=== PATIENT | male | born 1975 | race Two or more races ===

== ENCOUNTER → 2019-11-27 | Outpatient (CLI) | payer MEDICAID | END | disposition home or self-care (01) | LOC: HBOWC 09:26 | PROVIDERS: ATTEND Nurse Practitioner Adult Health | DX: E11.622 Type 2 diabetes mellitus with other skin ulcer (principal); L97.311 Non-pressure chronic ulcer of right ankle limited to breakdown of skin; I10 Essential (primary) hypertension; M00.871 Arthritis due to other bacteria, right ankle and foot | CPT/HCPCS: 87070; 87077; 87186; 87205; 97605; G0463 ==

== ENCOUNTER → 2019-12-10 | Outpatient (CLI) | payer MEDICAID | END | disposition home or self-care (01) | LOC: RADPV 09:05 | PROVIDERS: ATTEND Nurse Practitioner Adult Health | DX: E11.622 Type 2 diabetes mellitus with other skin ulcer (principal); L97.819 Non-pressure chronic ulcer of other part of right lower leg with unspecified severity; L02.415 Cutaneous abscess of right lower limb | CPT/HCPCS: 93926; 93971; 93922-TC ==

== ENCOUNTER → 2019-12-17 | Outpatient (CLI) | payer MEDICAID ==
[~2019-12-17] MED LIST: GADOBUTROL 1 MMOL/ML 10 ML VIAL IVP ONE
== END | disposition home or self-care (01) ==
LOC: RADMN 09:37
PROVIDERS: ATTEND Nurse Practitioner Adult Health
DX: M25.461 Effusion, right knee (principal); M86.161 Other acute osteomyelitis, right tibia and fibula; E11.622 Type 2 diabetes mellitus with other skin ulcer; L97.819 Non-pressure chronic ulcer of other part of right lower leg with unspecified severity; L02.415 Cutaneous abscess of right lower limb
CPT/HCPCS: 73720; A9585

== ENCOUNTER → 2019-12-18 | Outpatient (CLI) | payer MEDICAID | END | disposition home or self-care (01) | LOC: HBOWC 08:46 | PROVIDERS: ATTEND Nurse Practitioner Adult Health | DX: E11.622 Type 2 diabetes mellitus with other skin ulcer (principal); L97.311 Non-pressure chronic ulcer of right ankle limited to breakdown of skin; L97.811 Non-pressure chronic ulcer of other part of right lower leg limited to breakdown of skin; I10 Essential (primary) hypertension; M00.871 Arthritis due to other bacteria, right ankle and foot; E11.69 Type 2 diabetes mellitus with other specified complication; M86.161 Other acute osteomyelitis, right tibia and fibula | CPT/HCPCS: 97605 ==

== ENCOUNTER → 2019-12-25 | Outpatient (CLI) | payer MEDICAID | END | disposition home or self-care (01) | LOC: HBOWC 09:08 | PROVIDERS: ATTEND Nurse Practitioner Adult Health | DX: E11.622 Type 2 diabetes mellitus with other skin ulcer (principal); L97.311 Non-pressure chronic ulcer of right ankle limited to breakdown of skin; L97.811 Non-pressure chronic ulcer of other part of right lower leg limited to breakdown of skin; L02.415 Cutaneous abscess of right lower limb; I10 Essential (primary) hypertension; M00.871 Arthritis due to other bacteria, right ankle and foot; E11.69 Type 2 diabetes mellitus with other specified complication; M86.161 Other acute osteomyelitis, right tibia and fibula | CPT/HCPCS: 97605 ==

== ENCOUNTER → 2020-01-01 | Outpatient (CLI) | payer MEDICAID | END | disposition home or self-care (01) | LOC: HBOWC 09:15 | PROVIDERS: ATTEND Nurse Practitioner Adult Health | DX: E11.622 Type 2 diabetes mellitus with other skin ulcer (principal); L97.311 Non-pressure chronic ulcer of right ankle limited to breakdown of skin; L97.811 Non-pressure chronic ulcer of other part of right lower leg limited to breakdown of skin; L02.415 Cutaneous abscess of right lower limb; I10 Essential (primary) hypertension; M00.871 Arthritis due to other bacteria, right ankle and foot; E11.69 Type 2 diabetes mellitus with other specified complication; M86.161 Other acute osteomyelitis, right tibia and fibula | CPT/HCPCS: 97605 ==

== ENCOUNTER → 2020-01-08 | Outpatient (CLI) | payer MEDICAID | END | disposition home or self-care (01) | LOC: HBOWC 09:49 | PROVIDERS: ATTEND Nurse Practitioner Adult Health | DX: E11.622 Type 2 diabetes mellitus with other skin ulcer (principal); L97.311 Non-pressure chronic ulcer of right ankle limited to breakdown of skin; L97.811 Non-pressure chronic ulcer of other part of right lower leg limited to breakdown of skin; L02.415 Cutaneous abscess of right lower limb; I10 Essential (primary) hypertension; M00.871 Arthritis due to other bacteria, right ankle and foot; E11.69 Type 2 diabetes mellitus with other specified complication; M86.161 Other acute osteomyelitis, right tibia and fibula | CPT/HCPCS: 97605 ==

== ENCOUNTER → 2020-01-15 | Outpatient (CLI) | payer MEDICAID | END | disposition home or self-care (01) | LOC: HBOWC 09:33 | PROVIDERS: ATTEND Nurse Practitioner Adult Health | DX: E11.622 Type 2 diabetes mellitus with other skin ulcer (principal); L97.311 Non-pressure chronic ulcer of right ankle limited to breakdown of skin; L97.811 Non-pressure chronic ulcer of other part of right lower leg limited to breakdown of skin; L02.415 Cutaneous abscess of right lower limb; I10 Essential (primary) hypertension; M00.871 Arthritis due to other bacteria, right ankle and foot; E11.69 Type 2 diabetes mellitus with other specified complication; M86.161 Other acute osteomyelitis, right tibia and fibula | CPT/HCPCS: 97605 ==

== ENCOUNTER → 2020-01-22 | Outpatient (CLI) | payer MEDICAID | END | disposition home or self-care (01) | LOC: HBOWC 09:27 | PROVIDERS: ATTEND Nurse Practitioner Adult Health | DX: E11.622 Type 2 diabetes mellitus with other skin ulcer (principal); L97.311 Non-pressure chronic ulcer of right ankle limited to breakdown of skin; L97.811 Non-pressure chronic ulcer of other part of right lower leg limited to breakdown of skin; L02.415 Cutaneous abscess of right lower limb; I10 Essential (primary) hypertension; M00.871 Arthritis due to other bacteria, right ankle and foot; E11.69 Type 2 diabetes mellitus with other specified complication; M86.161 Other acute osteomyelitis, right tibia and fibula | CPT/HCPCS: 17250; 97605 ==

== ENCOUNTER → 2020-02-05 | Outpatient (CLI) | payer MEDICAID | END | disposition home or self-care (01) | LOC: HBOWC 09:25 | PROVIDERS: ATTEND Nurse Practitioner Adult Health | DX: E11.622 Type 2 diabetes mellitus with other skin ulcer (principal); L97.311 Non-pressure chronic ulcer of right ankle limited to breakdown of skin; L97.811 Non-pressure chronic ulcer of other part of right lower leg limited to breakdown of skin; L02.415 Cutaneous abscess of right lower limb; I10 Essential (primary) hypertension; M00.871 Arthritis due to other bacteria, right ankle and foot; E11.69 Type 2 diabetes mellitus with other specified complication; M86.161 Other acute osteomyelitis, right tibia and fibula | CPT/HCPCS: 97605 ==

== ENCOUNTER → 2020-02-12 | Outpatient (CLI) | payer MEDICAID | END | disposition home or self-care (01) | LOC: HBOWC 09:32 | PROVIDERS: ATTEND Nurse Practitioner Adult Health | DX: E11.622 Type 2 diabetes mellitus with other skin ulcer (principal); L97.311 Non-pressure chronic ulcer of right ankle limited to breakdown of skin; L97.811 Non-pressure chronic ulcer of other part of right lower leg limited to breakdown of skin; L02.415 Cutaneous abscess of right lower limb; I10 Essential (primary) hypertension; M00.871 Arthritis due to other bacteria, right ankle and foot; E11.69 Type 2 diabetes mellitus with other specified complication; M86.161 Other acute osteomyelitis, right tibia and fibula ==

== ENCOUNTER → 2020-02-19 | Outpatient (CLI) | payer MEDICAID | END | disposition home or self-care (01) | LOC: HBOWC 10:24 | PROVIDERS: ATTEND Nurse Practitioner Adult Health | DX: E11.622 Type 2 diabetes mellitus with other skin ulcer (principal); L97.311 Non-pressure chronic ulcer of right ankle limited to breakdown of skin; L97.811 Non-pressure chronic ulcer of other part of right lower leg limited to breakdown of skin; L02.415 Cutaneous abscess of right lower limb; I10 Essential (primary) hypertension; M00.871 Arthritis due to other bacteria, right ankle and foot; E11.69 Type 2 diabetes mellitus with other specified complication; M86.161 Other acute osteomyelitis, right tibia and fibula | CPT/HCPCS: 17250 ==

== ENCOUNTER → 2020-02-26 | Outpatient (CLI) | payer MEDICAID | END | disposition home or self-care (01) | LOC: HBOWC 09:39 | PROVIDERS: ATTEND Nurse Practitioner Adult Health | DX: E11.622 Type 2 diabetes mellitus with other skin ulcer (principal); L97.311 Non-pressure chronic ulcer of right ankle limited to breakdown of skin; L97.811 Non-pressure chronic ulcer of other part of right lower leg limited to breakdown of skin; L02.415 Cutaneous abscess of right lower limb; I10 Essential (primary) hypertension; M00.871 Arthritis due to other bacteria, right ankle and foot; E11.69 Type 2 diabetes mellitus with other specified complication; M86.161 Other acute osteomyelitis, right tibia and fibula | CPT/HCPCS: 97597 ==

== ENCOUNTER → 2020-03-04 | Outpatient (CLI) | payer MEDICAID | END | disposition home or self-care (01) | LOC: HBOWC 09:30 | PROVIDERS: ATTEND Nurse Practitioner Adult Health | DX: E11.622 Type 2 diabetes mellitus with other skin ulcer (principal); L97.311 Non-pressure chronic ulcer of right ankle limited to breakdown of skin; L97.811 Non-pressure chronic ulcer of other part of right lower leg limited to breakdown of skin; L02.415 Cutaneous abscess of right lower limb; I10 Essential (primary) hypertension; M00.871 Arthritis due to other bacteria, right ankle and foot; E11.69 Type 2 diabetes mellitus with other specified complication; M86.161 Other acute osteomyelitis, right tibia and fibula | CPT/HCPCS: 17250 ==

== ENCOUNTER → 2020-03-11 | Outpatient (CLI) | payer MEDICAID | END | disposition home or self-care (01) | LOC: HBOWC 09:33 | PROVIDERS: ATTEND Nurse Practitioner Adult Health | DX: E11.622 Type 2 diabetes mellitus with other skin ulcer (principal); L97.311 Non-pressure chronic ulcer of right ankle limited to breakdown of skin; L97.811 Non-pressure chronic ulcer of other part of right lower leg limited to breakdown of skin; L02.415 Cutaneous abscess of right lower limb; I10 Essential (primary) hypertension; M00.871 Arthritis due to other bacteria, right ankle and foot; E11.69 Type 2 diabetes mellitus with other specified complication; M86.161 Other acute osteomyelitis, right tibia and fibula | CPT/HCPCS: G0463; Z7500 ==

== ENCOUNTER → 2020-03-18 | Outpatient (CLI) | payer MEDICAID | END | disposition home or self-care (01) | LOC: HBOWC 09:15 | PROVIDERS: ATTEND Nurse Practitioner Adult Health | DX: E11.622 Type 2 diabetes mellitus with other skin ulcer (principal); L97.311 Non-pressure chronic ulcer of right ankle limited to breakdown of skin; L97.811 Non-pressure chronic ulcer of other part of right lower leg limited to breakdown of skin; L02.415 Cutaneous abscess of right lower limb; I10 Essential (primary) hypertension; M00.871 Arthritis due to other bacteria, right ankle and foot; E11.69 Type 2 diabetes mellitus with other specified complication; M86.161 Other acute osteomyelitis, right tibia and fibula ==

== ENCOUNTER → 2020-03-25 | Outpatient (CLI) | payer MEDICAID | END | disposition home or self-care (01) | LOC: HBOWC 09:16 | PROVIDERS: ATTEND Nurse Practitioner Adult Health | DX: E11.622 Type 2 diabetes mellitus with other skin ulcer (principal); L97.311 Non-pressure chronic ulcer of right ankle limited to breakdown of skin; L97.811 Non-pressure chronic ulcer of other part of right lower leg limited to breakdown of skin; L02.415 Cutaneous abscess of right lower limb; I10 Essential (primary) hypertension; M00.871 Arthritis due to other bacteria, right ankle and foot; E11.69 Type 2 diabetes mellitus with other specified complication; M86.161 Other acute osteomyelitis, right tibia and fibula | CPT/HCPCS: 17250; 87070; 87205; 87077-TC ==

== ENCOUNTER → 2020-04-08 | Outpatient (CLI) | payer MEDICAID | END | disposition home or self-care (01) | LOC: HBOWC 09:35 | PROVIDERS: ATTEND Nurse Practitioner Adult Health | DX: E11.622 Type 2 diabetes mellitus with other skin ulcer (principal); L97.311 Non-pressure chronic ulcer of right ankle limited to breakdown of skin; L97.811 Non-pressure chronic ulcer of other part of right lower leg limited to breakdown of skin; L02.415 Cutaneous abscess of right lower limb; I10 Essential (primary) hypertension; M00.871 Arthritis due to other bacteria, right ankle and foot; E11.69 Type 2 diabetes mellitus with other specified complication; M86.161 Other acute osteomyelitis, right tibia and fibula; L84 Corns and callosities | CPT/HCPCS: G0463; Z7500 ==

== ENCOUNTER → 2020-04-15 | Outpatient (CLI) | payer MEDICAID | END | disposition home or self-care (01) | LOC: HBOWC 09:39 | PROVIDERS: ATTEND Nurse Practitioner Adult Health | DX: E11.622 Type 2 diabetes mellitus with other skin ulcer (principal); L97.311 Non-pressure chronic ulcer of right ankle limited to breakdown of skin; L97.811 Non-pressure chronic ulcer of other part of right lower leg limited to breakdown of skin; L02.415 Cutaneous abscess of right lower limb; I10 Essential (primary) hypertension; M00.871 Arthritis due to other bacteria, right ankle and foot; E11.69 Type 2 diabetes mellitus with other specified complication; M86.161 Other acute osteomyelitis, right tibia and fibula; L84 Corns and callosities | CPT/HCPCS: G0463; Z7500 ==

== ENCOUNTER → 2020-04-29 | Outpatient (CLI) | payer MEDICAID ==
[~2020-04-29] MED LIST changes: -GADOBUTROL 1 MMOL/ML 10 ML VIAL IVP ONE; +GENTAMICIN SULFATE 0.1% 15 GM OINTMENT TP ONE
== END | disposition home or self-care (01) ==
LOC: HBOWC 09:21
PROVIDERS: ATTEND Nurse Practitioner Adult Health
DX: E11.622 Type 2 diabetes mellitus with other skin ulcer (principal); L97.311 Non-pressure chronic ulcer of right ankle limited to breakdown of skin; L97.811 Non-pressure chronic ulcer of other part of right lower leg limited to breakdown of skin; L02.415 Cutaneous abscess of right lower limb; I10 Essential (primary) hypertension; M00.871 Arthritis due to other bacteria, right ankle and foot; E11.69 Type 2 diabetes mellitus with other specified complication; M86.161 Other acute osteomyelitis, right tibia and fibula; L84 Corns and callosities

== ENCOUNTER → 2020-05-06 | Outpatient (CLI) | payer MEDICAID ==
[~2020-05-06] MED LIST changes: +ACETIC ACID 0.25% 1000 ML IRRIGATION SOLUTION IRRIG ONE; -GENTAMICIN SULFATE 0.1% 15 GM OINTMENT TP ONE
== END | disposition home or self-care (01) ==
LOC: HBOWC 08:45
PROVIDERS: ATTEND Nurse Practitioner Adult Health
DX: E11.622 Type 2 diabetes mellitus with other skin ulcer (principal); L97.311 Non-pressure chronic ulcer of right ankle limited to breakdown of skin; L97.811 Non-pressure chronic ulcer of other part of right lower leg limited to breakdown of skin; L02.415 Cutaneous abscess of right lower limb; M00.871 Arthritis due to other bacteria, right ankle and foot; I10 Essential (primary) hypertension; Z79.84 Long term (current) use of oral hypoglycemic drugs

== ENCOUNTER → 2020-05-13 | Outpatient (CLI) | payer MEDICAID | END | disposition home or self-care (01) | LOC: HBOWC 09:49 | PROVIDERS: ATTEND Nurse Practitioner Adult Health | DX: E11.622 Type 2 diabetes mellitus with other skin ulcer (principal); I87.311 Chronic venous hypertension (idiopathic) with ulcer of right lower extremity; L97.812 Non-pressure chronic ulcer of other part of right lower leg with fat layer exposed; L97.312 Non-pressure chronic ulcer of right ankle with fat layer exposed; L02.415 Cutaneous abscess of right lower limb; M00.871 Arthritis due to other bacteria, right ankle and foot; I10 Essential (primary) hypertension; L84 Corns and callosities; E11.69 Type 2 diabetes mellitus with other specified complication; M86.161 Other acute osteomyelitis, right tibia and fibula; Z79.84 Long term (current) use of oral hypoglycemic drugs | CPT/HCPCS: 11042 ==

== ENCOUNTER → 2020-05-19 | Outpatient (CLI) | payer MEDICAID | END | disposition home or self-care (01) | LOC: HBOWC 09:29 | PROVIDERS: ATTEND Nurse Practitioner Adult Health | DX: E11.622 Type 2 diabetes mellitus with other skin ulcer (principal); I87.311 Chronic venous hypertension (idiopathic) with ulcer of right lower extremity; L97.812 Non-pressure chronic ulcer of other part of right lower leg with fat layer exposed; L97.312 Non-pressure chronic ulcer of right ankle with fat layer exposed; L02.415 Cutaneous abscess of right lower limb; M00.871 Arthritis due to other bacteria, right ankle and foot; I10 Essential (primary) hypertension; L84 Corns and callosities; E11.69 Type 2 diabetes mellitus with other specified complication; M86.161 Other acute osteomyelitis, right tibia and fibula; Z79.84 Long term (current) use of oral hypoglycemic drugs | CPT/HCPCS: G0463; Z7500 ==

== ENCOUNTER → 2020-06-03 | Outpatient (CLI) | payer MEDICAID | END | disposition home or self-care (01) | LOC: HBOWC 10:08 | PROVIDERS: ATTEND Nurse Practitioner Adult Health | DX: E11.622 Type 2 diabetes mellitus with other skin ulcer (principal); I87.311 Chronic venous hypertension (idiopathic) with ulcer of right lower extremity; L97.311 Non-pressure chronic ulcer of right ankle limited to breakdown of skin; L97.811 Non-pressure chronic ulcer of other part of right lower leg limited to breakdown of skin; L02.415 Cutaneous abscess of right lower limb; M00.871 Arthritis due to other bacteria, right ankle and foot; L84 Corns and callosities; E11.69 Type 2 diabetes mellitus with other specified complication; M86.161 Other acute osteomyelitis, right tibia and fibula; Z79.84 Long term (current) use of oral hypoglycemic drugs | CPT/HCPCS: 17250 ==

== ENCOUNTER → 2020-06-10 | Outpatient (CLI) | payer MEDICAID | END | disposition home or self-care (01) | LOC: HBOWC 09:51 | PROVIDERS: ATTEND Nurse Practitioner Adult Health | DX: E11.622 Type 2 diabetes mellitus with other skin ulcer (principal); I87.311 Chronic venous hypertension (idiopathic) with ulcer of right lower extremity; L97.311 Non-pressure chronic ulcer of right ankle limited to breakdown of skin; L97.811 Non-pressure chronic ulcer of other part of right lower leg limited to breakdown of skin; L02.415 Cutaneous abscess of right lower limb; M00.871 Arthritis due to other bacteria, right ankle and foot; L84 Corns and callosities; E11.69 Type 2 diabetes mellitus with other specified complication; M86.161 Other acute osteomyelitis, right tibia and fibula; Z79.84 Long term (current) use of oral hypoglycemic drugs | CPT/HCPCS: 17250 ==

== ENCOUNTER → 2020-06-17 | Outpatient (CLI) | payer MEDICAID | END | disposition home or self-care (01) | LOC: HBOWC 09:42 | PROVIDERS: ATTEND Nurse Practitioner Adult Health | DX: E11.622 Type 2 diabetes mellitus with other skin ulcer (principal); I87.311 Chronic venous hypertension (idiopathic) with ulcer of right lower extremity; L97.311 Non-pressure chronic ulcer of right ankle limited to breakdown of skin; L97.811 Non-pressure chronic ulcer of other part of right lower leg limited to breakdown of skin; L02.415 Cutaneous abscess of right lower limb; M00.871 Arthritis due to other bacteria, right ankle and foot; L84 Corns and callosities; E11.69 Type 2 diabetes mellitus with other specified complication; M86.161 Other acute osteomyelitis, right tibia and fibula; Z79.84 Long term (current) use of oral hypoglycemic drugs | CPT/HCPCS: G0463; Z7500 ==

== ENCOUNTER → 2020-06-24 | Outpatient (CLI) | payer MEDICAID | END | disposition home or self-care (01) | LOC: HBOWC 09:45 | PROVIDERS: ATTEND Nurse Practitioner Adult Health | DX: T81.89XD Other complications of procedures, not elsewhere classified, subsequent encounter (principal); E11.622 Type 2 diabetes mellitus with other skin ulcer; I87.311 Chronic venous hypertension (idiopathic) with ulcer of right lower extremity; L97.311 Non-pressure chronic ulcer of right ankle limited to breakdown of skin; L97.811 Non-pressure chronic ulcer of other part of right lower leg limited to breakdown of skin; L02.415 Cutaneous abscess of right lower limb; I10 Essential (primary) hypertension; M00.871 Arthritis due to other bacteria, right ankle and foot; Z79.84 Long term (current) use of oral hypoglycemic drugs; Y83.8 Other surgical procedures as the cause of abnormal reaction of the patient, or of later complication, without mention of misadventure at the time of the procedure | CPT/HCPCS: G0463; Z7500 ==

== ENCOUNTER → 2020-07-01 | Outpatient (CLI) | payer MEDICAID | END | disposition home or self-care (01) | LOC: HBOWC 09:28 | PROVIDERS: ATTEND Nurse Practitioner Adult Health | DX: E11.622 Type 2 diabetes mellitus with other skin ulcer (principal); I87.311 Chronic venous hypertension (idiopathic) with ulcer of right lower extremity; L97.311 Non-pressure chronic ulcer of right ankle limited to breakdown of skin; L97.811 Non-pressure chronic ulcer of other part of right lower leg limited to breakdown of skin; L02.415 Cutaneous abscess of right lower limb; M00.871 Arthritis due to other bacteria, right ankle and foot; L84 Corns and callosities; E11.69 Type 2 diabetes mellitus with other specified complication; M86.161 Other acute osteomyelitis, right tibia and fibula; Z79.84 Long term (current) use of oral hypoglycemic drugs | CPT/HCPCS: 17250 ==

== ENCOUNTER → 2020-07-08 | Outpatient (CLI) | payer MEDICAID | END | disposition home or self-care (01) | LOC: HBOWC 09:46 | PROVIDERS: ATTEND Nurse Practitioner Adult Health | DX: E11.622 Type 2 diabetes mellitus with other skin ulcer (principal); I87.311 Chronic venous hypertension (idiopathic) with ulcer of right lower extremity; L97.311 Non-pressure chronic ulcer of right ankle limited to breakdown of skin; L97.811 Non-pressure chronic ulcer of other part of right lower leg limited to breakdown of skin; L02.415 Cutaneous abscess of right lower limb; M00.871 Arthritis due to other bacteria, right ankle and foot; L84 Corns and callosities; E11.69 Type 2 diabetes mellitus with other specified complication; M86.161 Other acute osteomyelitis, right tibia and fibula; Z79.84 Long term (current) use of oral hypoglycemic drugs | CPT/HCPCS: G0463; Z7500 ==

== ENCOUNTER → 2020-07-15 | Outpatient (CLI) | payer MEDICAID | END | disposition home or self-care (01) | LOC: HBOWC 08:49 | PROVIDERS: ATTEND Nurse Practitioner Adult Health | DX: E11.622 Type 2 diabetes mellitus with other skin ulcer (principal); I87.311 Chronic venous hypertension (idiopathic) with ulcer of right lower extremity; L97.311 Non-pressure chronic ulcer of right ankle limited to breakdown of skin; L97.811 Non-pressure chronic ulcer of other part of right lower leg limited to breakdown of skin; L02.415 Cutaneous abscess of right lower limb; M00.871 Arthritis due to other bacteria, right ankle and foot; L84 Corns and callosities; E11.69 Type 2 diabetes mellitus with other specified complication; M86.161 Other acute osteomyelitis, right tibia and fibula; Z79.84 Long term (current) use of oral hypoglycemic drugs | CPT/HCPCS: G0463; Z7500 ==

== ENCOUNTER → 2020-07-22 | Outpatient (CLI) | payer MEDICAID | END | disposition home or self-care (01) | LOC: HBOWC 09:38 | PROVIDERS: ATTEND Nurse Practitioner Adult Health | DX: E11.622 Type 2 diabetes mellitus with other skin ulcer (principal); I87.311 Chronic venous hypertension (idiopathic) with ulcer of right lower extremity; L97.311 Non-pressure chronic ulcer of right ankle limited to breakdown of skin; L97.811 Non-pressure chronic ulcer of other part of right lower leg limited to breakdown of skin; L02.415 Cutaneous abscess of right lower limb; M00.871 Arthritis due to other bacteria, right ankle and foot; L84 Corns and callosities; E11.69 Type 2 diabetes mellitus with other specified complication; M86.161 Other acute osteomyelitis, right tibia and fibula; Z79.84 Long term (current) use of oral hypoglycemic drugs | CPT/HCPCS: G0463; Z7500 ==

== ENCOUNTER → 2020-07-29 | Outpatient (CLI) | payer MEDICAID | END | disposition home or self-care (01) | LOC: HBOWC 08:43 | PROVIDERS: ATTEND Nurse Practitioner Adult Health | DX: E11.622 Type 2 diabetes mellitus with other skin ulcer (principal); I87.311 Chronic venous hypertension (idiopathic) with ulcer of right lower extremity; L97.311 Non-pressure chronic ulcer of right ankle limited to breakdown of skin; L97.811 Non-pressure chronic ulcer of other part of right lower leg limited to breakdown of skin; L02.415 Cutaneous abscess of right lower limb; M00.871 Arthritis due to other bacteria, right ankle and foot; L84 Corns and callosities; E11.69 Type 2 diabetes mellitus with other specified complication; M86.161 Other acute osteomyelitis, right tibia and fibula; Z79.84 Long term (current) use of oral hypoglycemic drugs | CPT/HCPCS: 17250 ==

== ENCOUNTER → 2020-08-05 | Outpatient (CLI) | payer MEDICAID | END | disposition home or self-care (01) | LOC: HBOWC 09:30 | PROVIDERS: ATTEND Nurse Practitioner Adult Health | DX: E11.622 Type 2 diabetes mellitus with other skin ulcer (principal); I87.311 Chronic venous hypertension (idiopathic) with ulcer of right lower extremity; L97.311 Non-pressure chronic ulcer of right ankle limited to breakdown of skin; L97.811 Non-pressure chronic ulcer of other part of right lower leg limited to breakdown of skin; S91.001A Unspecified open wound, right ankle, initial encounter; L02.415 Cutaneous abscess of right lower limb; M00.871 Arthritis due to other bacteria, right ankle and foot; L84 Corns and callosities; E11.69 Type 2 diabetes mellitus with other specified complication; M86.161 Other acute osteomyelitis, right tibia and fibula; Z79.84 Long term (current) use of oral hypoglycemic drugs; X58.XXXA Exposure to other specified factors, initial encounter; Y93.89 Activity, other specified; Y92.89 Other specified places as the place of occurrence of the external cause; Y99.8 Other external cause status | CPT/HCPCS: 17250; 97597 ==

== ENCOUNTER → 2020-08-12 | Outpatient (CLI) | payer MEDICAID | END | disposition home or self-care (01) | LOC: HBOWC 08:49 | PROVIDERS: ATTEND Nurse Practitioner Adult Health | DX: T81.89XD Other complications of procedures, not elsewhere classified, subsequent encounter (principal); I87.311 Chronic venous hypertension (idiopathic) with ulcer of right lower extremity; E11.622 Type 2 diabetes mellitus with other skin ulcer; L97.811 Non-pressure chronic ulcer of other part of right lower leg limited to breakdown of skin; L02.415 Cutaneous abscess of right lower limb; I10 Essential (primary) hypertension; M00.879 Arthritis due to other bacteria, unspecified ankle and foot; M00.871 Arthritis due to other bacteria, right ankle and foot; Z79.84 Long term (current) use of oral hypoglycemic drugs; Z79.899 Other long term (current) drug therapy; Z98.890 Other specified postprocedural states; Y83.8 Other surgical procedures as the cause of abnormal reaction of the patient, or of later complication, without mention of misadventure at the time of the procedure | CPT/HCPCS: 17250; 97597; 99215 ==

== ENCOUNTER → 2020-08-19 | Outpatient (CLI) | payer MEDICAID | END | disposition home or self-care (01) | LOC: HBOWC 09:02 | PROVIDERS: ATTEND Nurse Practitioner Adult Health | DX: E11.622 Type 2 diabetes mellitus with other skin ulcer (principal); I87.311 Chronic venous hypertension (idiopathic) with ulcer of right lower extremity; L97.811 Non-pressure chronic ulcer of other part of right lower leg limited to breakdown of skin; L02.415 Cutaneous abscess of right lower limb; I10 Essential (primary) hypertension; M00.879 Arthritis due to other bacteria, unspecified ankle and foot; E11.69 Type 2 diabetes mellitus with other specified complication; M86.161 Other acute osteomyelitis, right tibia and fibula; Z79.84 Long term (current) use of oral hypoglycemic drugs; Z79.899 Other long term (current) drug therapy | CPT/HCPCS: 17250 ==

== ENCOUNTER → 2020-08-26 | Outpatient (CLI) | payer MEDICAID | END | disposition home or self-care (01) | LOC: HBOWC 08:44 | PROVIDERS: ATTEND Nurse Practitioner Adult Health | DX: E11.622 Type 2 diabetes mellitus with other skin ulcer (principal); I87.311 Chronic venous hypertension (idiopathic) with ulcer of right lower extremity; L97.312 Non-pressure chronic ulcer of right ankle with fat layer exposed; L97.811 Non-pressure chronic ulcer of other part of right lower leg limited to breakdown of skin; L02.415 Cutaneous abscess of right lower limb; E11.69 Type 2 diabetes mellitus with other specified complication; M86.161 Other acute osteomyelitis, right tibia and fibula; M00.871 Arthritis due to other bacteria, right ankle and foot; I10 Essential (primary) hypertension; Z79.899 Other long term (current) drug therapy; Z79.84 Long term (current) use of oral hypoglycemic drugs; Z98.890 Other specified postprocedural states | CPT/HCPCS: 11042; 11045; 87070; 87205; 87077-TC; 87186-TC ==

== ENCOUNTER → 2020-09-02 | Outpatient (CLI) | payer MEDICAID | END | disposition home or self-care (01) | LOC: HBOWC 10:32 | PROVIDERS: ATTEND Nurse Practitioner Adult Health | DX: T81.89XD Other complications of procedures, not elsewhere classified, subsequent encounter (principal); I87.311 Chronic venous hypertension (idiopathic) with ulcer of right lower extremity; E11.622 Type 2 diabetes mellitus with other skin ulcer; L97.311 Non-pressure chronic ulcer of right ankle limited to breakdown of skin; E11.621 Type 2 diabetes mellitus with foot ulcer; L97.511 Non-pressure chronic ulcer of other part of right foot limited to breakdown of skin; L97.811 Non-pressure chronic ulcer of other part of right lower leg limited to breakdown of skin; L02.415 Cutaneous abscess of right lower limb; M00.871 Arthritis due to other bacteria, right ankle and foot; E11.69 Type 2 diabetes mellitus with other specified complication; M86.161 Other acute osteomyelitis, right tibia and fibula; Z79.899 Other long term (current) drug therapy; Z79.84 Long term (current) use of oral hypoglycemic drugs; Z98.890 Other specified postprocedural states; Y83.8 Other surgical procedures as the cause of abnormal reaction of the patient, or of later complication, without mention of misadventure at the time of the procedure | CPT/HCPCS: 99215 ==

== ENCOUNTER → 2020-09-09 | Outpatient (CLI) | payer MEDICAID | END | disposition home or self-care (01) | LOC: HBOWC 08:51 | PROVIDERS: ATTEND Nurse Practitioner Adult Health | DX: T81.89XD Other complications of procedures, not elsewhere classified, subsequent encounter (principal); E11.622 Type 2 diabetes mellitus with other skin ulcer; I87.311 Chronic venous hypertension (idiopathic) with ulcer of right lower extremity; L97.321 Non-pressure chronic ulcer of left ankle limited to breakdown of skin; L97.811 Non-pressure chronic ulcer of other part of right lower leg limited to breakdown of skin; E11.621 Type 2 diabetes mellitus with foot ulcer; L97.511 Non-pressure chronic ulcer of other part of right foot limited to breakdown of skin; L02.415 Cutaneous abscess of right lower limb; M00.871 Arthritis due to other bacteria, right ankle and foot; Z79.899 Other long term (current) drug therapy; Y83.8 Other surgical procedures as the cause of abnormal reaction of the patient, or of later complication, without mention of misadventure at the time of the procedure | CPT/HCPCS: 99215 ==

== ENCOUNTER → 2020-09-16 | Outpatient (CLI) | payer MEDICAID | END | disposition home or self-care (01) | LOC: HBOWC 08:42 | PROVIDERS: ATTEND Nurse Practitioner Adult Health | DX: T81.89XD Other complications of procedures, not elsewhere classified, subsequent encounter (principal); E11.622 Type 2 diabetes mellitus with other skin ulcer; I87.311 Chronic venous hypertension (idiopathic) with ulcer of right lower extremity; L97.311 Non-pressure chronic ulcer of right ankle limited to breakdown of skin; L97.511 Non-pressure chronic ulcer of other part of right foot limited to breakdown of skin; E11.621 Type 2 diabetes mellitus with foot ulcer; L97.811 Non-pressure chronic ulcer of other part of right lower leg limited to breakdown of skin; L02.415 Cutaneous abscess of right lower limb; I10 Essential (primary) hypertension; M00.871 Arthritis due to other bacteria, right ankle and foot; Z79.899 Other long term (current) drug therapy; Z79.84 Long term (current) use of oral hypoglycemic drugs; Z98.890 Other specified postprocedural states; Y83.8 Other surgical procedures as the cause of abnormal reaction of the patient, or of later complication, without mention of misadventure at the time of the procedure | CPT/HCPCS: 97605; 99215 ==

== ENCOUNTER → 2020-09-23 | Outpatient (CLI) | payer MEDICAID | END | disposition home or self-care (01) | LOC: HBOWC 08:50 | PROVIDERS: ATTEND Nurse Practitioner Adult Health | DX: E11.622 Type 2 diabetes mellitus with other skin ulcer (principal); I87.311 Chronic venous hypertension (idiopathic) with ulcer of right lower extremity; L97.311 Non-pressure chronic ulcer of right ankle limited to breakdown of skin; L97.511 Non-pressure chronic ulcer of other part of right foot limited to breakdown of skin; E11.621 Type 2 diabetes mellitus with foot ulcer; L97.811 Non-pressure chronic ulcer of other part of right lower leg limited to breakdown of skin; L02.415 Cutaneous abscess of right lower limb; I10 Essential (primary) hypertension; L84 Corns and callosities; M72.6 Necrotizing fasciitis; E11.69 Type 2 diabetes mellitus with other specified complication; M86.161 Other acute osteomyelitis, right tibia and fibula; M00.871 Arthritis due to other bacteria, right ankle and foot; Z79.899 Other long term (current) drug therapy; Z79.84 Long term (current) use of oral hypoglycemic drugs; Z98.890 Other specified postprocedural states | CPT/HCPCS: 97605; 99215 ==

== ENCOUNTER → 2020-09-30 | Outpatient (CLI) | payer MEDICAID | END | disposition home or self-care (01) | LOC: HBOWC 08:33 | PROVIDERS: ATTEND Nurse Practitioner Adult Health | DX: E11.622 Type 2 diabetes mellitus with other skin ulcer (principal); I87.311 Chronic venous hypertension (idiopathic) with ulcer of right lower extremity; L97.311 Non-pressure chronic ulcer of right ankle limited to breakdown of skin; L97.811 Non-pressure chronic ulcer of other part of right lower leg limited to breakdown of skin; E11.621 Type 2 diabetes mellitus with foot ulcer; L97.511 Non-pressure chronic ulcer of other part of right foot limited to breakdown of skin; L02.415 Cutaneous abscess of right lower limb; I10 Essential (primary) hypertension; L84 Corns and callosities; M72.6 Necrotizing fasciitis; E11.69 Type 2 diabetes mellitus with other specified complication; M86.161 Other acute osteomyelitis, right tibia and fibula; M00.871 Arthritis due to other bacteria, right ankle and foot; Z79.899 Other long term (current) drug therapy; Z79.84 Long term (current) use of oral hypoglycemic drugs; Z98.890 Other specified postprocedural states | CPT/HCPCS: 97605; 99215 ==

== ENCOUNTER → 2020-10-07 | Outpatient (CLI) | payer MEDICAID | END | disposition home or self-care (01) | LOC: HBOWC 08:20 | PROVIDERS: ATTEND Nurse Practitioner Adult Health | DX: E11.622 Type 2 diabetes mellitus with other skin ulcer (principal); I87.311 Chronic venous hypertension (idiopathic) with ulcer of right lower extremity; L97.311 Non-pressure chronic ulcer of right ankle limited to breakdown of skin; L97.811 Non-pressure chronic ulcer of other part of right lower leg limited to breakdown of skin; E11.621 Type 2 diabetes mellitus with foot ulcer; L97.511 Non-pressure chronic ulcer of other part of right foot limited to breakdown of skin; L02.415 Cutaneous abscess of right lower limb; I10 Essential (primary) hypertension; L84 Corns and callosities; M72.6 Necrotizing fasciitis; E11.69 Type 2 diabetes mellitus with other specified complication; M86.161 Other acute osteomyelitis, right tibia and fibula; M00.871 Arthritis due to other bacteria, right ankle and foot; Z79.899 Other long term (current) drug therapy; Z79.84 Long term (current) use of oral hypoglycemic drugs; Z98.890 Other specified postprocedural states | CPT/HCPCS: 17250; 99215 ==

== ENCOUNTER → 2020-10-14 | Outpatient (CLI) | payer MEDICAID | END | disposition home or self-care (01) | LOC: HBOWC 08:19 | PROVIDERS: ATTEND Nurse Practitioner Adult Health | DX: E11.622 Type 2 diabetes mellitus with other skin ulcer (principal); I87.311 Chronic venous hypertension (idiopathic) with ulcer of right lower extremity; L97.311 Non-pressure chronic ulcer of right ankle limited to breakdown of skin; L97.811 Non-pressure chronic ulcer of other part of right lower leg limited to breakdown of skin; E11.621 Type 2 diabetes mellitus with foot ulcer; L97.511 Non-pressure chronic ulcer of other part of right foot limited to breakdown of skin; L02.415 Cutaneous abscess of right lower limb; I10 Essential (primary) hypertension; L84 Corns and callosities; M72.6 Necrotizing fasciitis; E11.69 Type 2 diabetes mellitus with other specified complication; M86.161 Other acute osteomyelitis, right tibia and fibula; M00.871 Arthritis due to other bacteria, right ankle and foot; Z79.899 Other long term (current) drug therapy; Z79.84 Long term (current) use of oral hypoglycemic drugs; Z98.890 Other specified postprocedural states | CPT/HCPCS: 97605; 99215 ==

== ENCOUNTER → 2020-10-21 | Outpatient (CLI) | payer MEDICAID | END | disposition home or self-care (01) | LOC: HBOWC 08:17 | PROVIDERS: ATTEND Nurse Practitioner Adult Health | DX: E11.622 Type 2 diabetes mellitus with other skin ulcer (principal); I87.311 Chronic venous hypertension (idiopathic) with ulcer of right lower extremity; L97.311 Non-pressure chronic ulcer of right ankle limited to breakdown of skin; L97.811 Non-pressure chronic ulcer of other part of right lower leg limited to breakdown of skin; L02.415 Cutaneous abscess of right lower limb; E11.69 Type 2 diabetes mellitus with other specified complication; M00.871 Arthritis due to other bacteria, right ankle and foot; M86.161 Other acute osteomyelitis, right tibia and fibula; Z79.84 Long term (current) use of oral hypoglycemic drugs | CPT/HCPCS: G0463 ==

== ENCOUNTER → 2020-10-28 | Outpatient (CLI) | payer MEDICAID | END | disposition home or self-care (01) | LOC: HBOWC 08:17 | PROVIDERS: ATTEND Nurse Practitioner Adult Health | DX: E11.622 Type 2 diabetes mellitus with other skin ulcer (principal); I87.311 Chronic venous hypertension (idiopathic) with ulcer of right lower extremity; L97.311 Non-pressure chronic ulcer of right ankle limited to breakdown of skin; L97.811 Non-pressure chronic ulcer of other part of right lower leg limited to breakdown of skin; L02.415 Cutaneous abscess of right lower limb; I10 Essential (primary) hypertension; L84 Corns and callosities; M72.6 Necrotizing fasciitis; E11.69 Type 2 diabetes mellitus with other specified complication; M86.161 Other acute osteomyelitis, right tibia and fibula; M00.871 Arthritis due to other bacteria, right ankle and foot; Z79.899 Other long term (current) drug therapy; Z79.84 Long term (current) use of oral hypoglycemic drugs; Z98.890 Other specified postprocedural states | CPT/HCPCS: 99215; G0463; Z7500 ==

== ENCOUNTER → 2020-11-04 | Outpatient (CLI) | payer MEDICAID | END | disposition home or self-care (01) | LOC: HBOWC 08:18 | PROVIDERS: ATTEND Nurse Practitioner Adult Health | DX: E11.622 Type 2 diabetes mellitus with other skin ulcer (principal); I87.311 Chronic venous hypertension (idiopathic) with ulcer of right lower extremity; L97.311 Non-pressure chronic ulcer of right ankle limited to breakdown of skin; L97.811 Non-pressure chronic ulcer of other part of right lower leg limited to breakdown of skin; L02.415 Cutaneous abscess of right lower limb; I10 Essential (primary) hypertension; L84 Corns and callosities; M72.6 Necrotizing fasciitis; E11.69 Type 2 diabetes mellitus with other specified complication; M86.161 Other acute osteomyelitis, right tibia and fibula; M00.871 Arthritis due to other bacteria, right ankle and foot; Z79.899 Other long term (current) drug therapy; Z79.84 Long term (current) use of oral hypoglycemic drugs; Z98.890 Other specified postprocedural states | CPT/HCPCS: G0463; Z7500 ==

== ENCOUNTER → 2020-11-11 | Outpatient (CLI) | payer MEDICAID | END | disposition home or self-care (01) | LOC: HBOWC 08:21 | PROVIDERS: ATTEND Nurse Practitioner Adult Health | DX: E11.622 Type 2 diabetes mellitus with other skin ulcer (principal); I87.311 Chronic venous hypertension (idiopathic) with ulcer of right lower extremity; L97.311 Non-pressure chronic ulcer of right ankle limited to breakdown of skin; L97.811 Non-pressure chronic ulcer of other part of right lower leg limited to breakdown of skin; L02.415 Cutaneous abscess of right lower limb; L03.115 Cellulitis of right lower limb; E11.69 Type 2 diabetes mellitus with other specified complication; M86.60 Other chronic osteomyelitis, unspecified site; M86.161 Other acute osteomyelitis, right tibia and fibula; M00.871 Arthritis due to other bacteria, right ankle and foot; L84 Corns and callosities; J45.909 Unspecified asthma, uncomplicated; Z87.01 Personal history of pneumonia (recurrent); Z87.891 Personal history of nicotine dependence; Z96.698 Presence of other orthopedic joint implants; Z98.890 Other specified postprocedural states; Z79.899 Other long term (current) drug therapy; Z79.84 Long term (current) use of oral hypoglycemic drugs | CPT/HCPCS: G0463 ==

== ENCOUNTER → 2020-11-18 | Outpatient (CLI) | payer MEDICAID ==
[~2020-11-18] MED LIST changes: -ACETIC ACID 0.25% 1000 ML IRRIGATION SOLUTION IRRIG ONE; +MUPIROCIN CALCIUM 2% 22 GM OINTMENT NASAL ONE
== END | disposition home or self-care (01) ==
LOC: HBOWC 08:21
PROVIDERS: ATTEND Nurse Practitioner Adult Health
DX: E11.622 Type 2 diabetes mellitus with other skin ulcer (principal); I87.311 Chronic venous hypertension (idiopathic) with ulcer of right lower extremity; L97.311 Non-pressure chronic ulcer of right ankle limited to breakdown of skin; L97.811 Non-pressure chronic ulcer of other part of right lower leg limited to breakdown of skin; L02.415 Cutaneous abscess of right lower limb; I10 Essential (primary) hypertension; L84 Corns and callosities; M72.6 Necrotizing fasciitis; E11.69 Type 2 diabetes mellitus with other specified complication; M86.161 Other acute osteomyelitis, right tibia and fibula; M00.871 Arthritis due to other bacteria, right ankle and foot; Z79.899 Other long term (current) drug therapy; Z79.84 Long term (current) use of oral hypoglycemic drugs; Z98.890 Other specified postprocedural states
CPT/HCPCS: 17250; 87070; 87077; G0463; 87186

== ENCOUNTER → 2020-11-25 | Outpatient (CLI) | payer MEDICAID | END | disposition home or self-care (01) | LOC: HBOWC 08:20 | PROVIDERS: ATTEND Nurse Practitioner Adult Health | DX: E11.622 Type 2 diabetes mellitus with other skin ulcer (principal); I87.311 Chronic venous hypertension (idiopathic) with ulcer of right lower extremity; L97.311 Non-pressure chronic ulcer of right ankle limited to breakdown of skin; L97.811 Non-pressure chronic ulcer of other part of right lower leg limited to breakdown of skin; L03.115 Cellulitis of right lower limb; L02.415 Cutaneous abscess of right lower limb; I10 Essential (primary) hypertension; L84 Corns and callosities; M72.6 Necrotizing fasciitis; E11.69 Type 2 diabetes mellitus with other specified complication; M86.161 Other acute osteomyelitis, right tibia and fibula; M00.871 Arthritis due to other bacteria, right ankle and foot; Z79.899 Other long term (current) drug therapy; Z79.84 Long term (current) use of oral hypoglycemic drugs; Z98.890 Other specified postprocedural states | CPT/HCPCS: 17250; G0463 ==

== ENCOUNTER → 2020-12-02 | Outpatient (CLI) | payer MEDICAID | END | disposition home or self-care (01) | LOC: HBOWC 08:19 | PROVIDERS: ATTEND Nurse Practitioner Adult Health | DX: E11.621 Type 2 diabetes mellitus with foot ulcer (principal); I87.311 Chronic venous hypertension (idiopathic) with ulcer of right lower extremity; L97.511 Non-pressure chronic ulcer of other part of right foot limited to breakdown of skin; E11.622 Type 2 diabetes mellitus with other skin ulcer; L97.311 Non-pressure chronic ulcer of right ankle limited to breakdown of skin; L97.811 Non-pressure chronic ulcer of other part of right lower leg limited to breakdown of skin; L02.415 Cutaneous abscess of right lower limb; L03.115 Cellulitis of right lower limb; M00.871 Arthritis due to other bacteria, right ankle and foot; E11.69 Type 2 diabetes mellitus with other specified complication; M86.161 Other acute osteomyelitis, right tibia and fibula; Z79.84 Long term (current) use of oral hypoglycemic drugs | CPT/HCPCS: 97597; G0463 ==

== ENCOUNTER → 2020-12-09 | Outpatient (CLI) | payer MEDICAID ==
[~2020-12-09] MED LIST changes: +FentaNYL CITRATE PF 100 MCG/2 ML VIAL ONE; +MIDAZOLAM HCL 2 MG/2 ML VIAL ONE; -MUPIROCIN CALCIUM 2% 22 GM OINTMENT NASAL ONE
== END | disposition home or self-care (01) ==
LOC: HBOWC 08:17
PROVIDERS: ATTEND Nurse Practitioner Adult Health
DX: E11.622 Type 2 diabetes mellitus with other skin ulcer (principal); L97.311 Non-pressure chronic ulcer of right ankle limited to breakdown of skin; E11.621 Type 2 diabetes mellitus with foot ulcer; L97.511 Non-pressure chronic ulcer of other part of right foot limited to breakdown of skin; L02.415 Cutaneous abscess of right lower limb; L03.115 Cellulitis of right lower limb; E11.69 Type 2 diabetes mellitus with other specified complication; M86.60 Other chronic osteomyelitis, unspecified site; I10 Essential (primary) hypertension; M00.871 Arthritis due to other bacteria, right ankle and foot; J45.909 Unspecified asthma, uncomplicated; Z87.01 Personal history of pneumonia (recurrent); Z87.891 Personal history of nicotine dependence; Z96.698 Presence of other orthopedic joint implants; Z98.890 Other specified postprocedural states; Z79.899 Other long term (current) drug therapy
CPT/HCPCS: G0463; J2250; J3010

== ENCOUNTER → 2020-12-16 | Outpatient (CLI) | payer MEDICAID | END | disposition home or self-care (01) | LOC: HBOWC 08:20 | PROVIDERS: ATTEND Nurse Practitioner Adult Health | DX: E11.622 Type 2 diabetes mellitus with other skin ulcer (principal); I87.311 Chronic venous hypertension (idiopathic) with ulcer of right lower extremity; L97.811 Non-pressure chronic ulcer of other part of right lower leg limited to breakdown of skin; L97.311 Non-pressure chronic ulcer of right ankle limited to breakdown of skin; L02.415 Cutaneous abscess of right lower limb; L03.115 Cellulitis of right lower limb; M86.60 Other chronic osteomyelitis, unspecified site; M00.871 Arthritis due to other bacteria, right ankle and foot; B96.89 Other specified bacterial agents as the cause of diseases classified elsewhere; I10 Essential (primary) hypertension; J45.909 Unspecified asthma, uncomplicated; Z87.891 Personal history of nicotine dependence; Z87.01 Personal history of pneumonia (recurrent); Z96.698 Presence of other orthopedic joint implants; Z79.899 Other long term (current) drug therapy | CPT/HCPCS: G0463; Z7500 ==

== ENCOUNTER → 2020-12-23 | Outpatient (CLI) | payer MEDICAID | END | disposition home or self-care (01) | LOC: HBOWC 08:16 | PROVIDERS: ATTEND Nurse Practitioner Adult Health | DX: E11.622 Type 2 diabetes mellitus with other skin ulcer (principal); I87.311 Chronic venous hypertension (idiopathic) with ulcer of right lower extremity; L97.311 Non-pressure chronic ulcer of right ankle limited to breakdown of skin; L97.811 Non-pressure chronic ulcer of other part of right lower leg limited to breakdown of skin; L02.415 Cutaneous abscess of right lower limb; L03.115 Cellulitis of right lower limb; M00.871 Arthritis due to other bacteria, right ankle and foot; B96.89 Other specified bacterial agents as the cause of diseases classified elsewhere; E11.69 Type 2 diabetes mellitus with other specified complication; M86.60 Other chronic osteomyelitis, unspecified site; M86.161 Other acute osteomyelitis, right tibia and fibula; I10 Essential (primary) hypertension; J45.909 Unspecified asthma, uncomplicated; L84 Corns and callosities; M72.6 Necrotizing fasciitis; Z87.891 Personal history of nicotine dependence; Z87.01 Personal history of pneumonia (recurrent); Z96.698 Presence of other orthopedic joint implants; Z79.899 Other long term (current) drug therapy; Z79.84 Long term (current) use of oral hypoglycemic drugs | CPT/HCPCS: G0463 ==

== ENCOUNTER → 2020-12-27 | Outpatient (CLI) | payer MEDICAID ==
[~2020-12-27] MED LIST changes: -FentaNYL CITRATE PF 100 MCG/2 ML VIAL ONE; +GADOTERATE MEGLUMINE 10 MMOL/20 ML VIAL IVP ONE; -MIDAZOLAM HCL 2 MG/2 ML VIAL ONE
== END | disposition home or self-care (01) ==
LOC: RADMN 10:36
PROVIDERS: ATTEND Nurse Practitioner Adult Health
DX: S91.011A Laceration without foreign body, right ankle, initial encounter (principal); M86.8X6 Other osteomyelitis, lower leg; M19.071 Primary osteoarthritis, right ankle and foot; M24.671 Ankylosis, right ankle; M25.471 Effusion, right ankle; M79.89 Other specified soft tissue disorders; L02.415 Cutaneous abscess of right lower limb; L97.819 Non-pressure chronic ulcer of other part of right lower leg with unspecified severity; E11.622 Type 2 diabetes mellitus with other skin ulcer; M86.60 Other chronic osteomyelitis, unspecified site; X58.XXXA Exposure to other specified factors, initial encounter; Y93.89 Activity, other specified; Y92.89 Other specified places as the place of occurrence of the external cause; Y99.8 Other external cause status
CPT/HCPCS: 73723; A9575; Q9967

== ENCOUNTER → 2021-01-06 | Outpatient (CLI) | payer MEDICAID | END | disposition home or self-care (01) | LOC: HBOWC 08:19 | PROVIDERS: ATTEND Nurse Practitioner Adult Health | DX: E11.622 Type 2 diabetes mellitus with other skin ulcer (principal); L97.311 Non-pressure chronic ulcer of right ankle limited to breakdown of skin; L97.811 Non-pressure chronic ulcer of other part of right lower leg limited to breakdown of skin; L02.415 Cutaneous abscess of right lower limb; L03.115 Cellulitis of right lower limb; I10 Essential (primary) hypertension; M19.071 Primary osteoarthritis, right ankle and foot; E11.69 Type 2 diabetes mellitus with other specified complication; M86.661 Other chronic osteomyelitis, right tibia and fibula; M86.8X6 Other osteomyelitis, lower leg; M00.871 Arthritis due to other bacteria, right ankle and foot; J45.909 Unspecified asthma, uncomplicated; Z87.01 Personal history of pneumonia (recurrent); Z98.890 Other specified postprocedural states; Z87.891 Personal history of nicotine dependence; Z96.698 Presence of other orthopedic joint implants; Z79.899 Other long term (current) drug therapy | CPT/HCPCS: G0463; Z7500 ==

== ENCOUNTER → 2021-01-13 | Outpatient (CLI) | payer MEDICAID | END | disposition home or self-care (01) | LOC: HBOWC 08:20 | PROVIDERS: ATTEND Nurse Practitioner Adult Health | DX: E11.622 Type 2 diabetes mellitus with other skin ulcer (principal); L97.311 Non-pressure chronic ulcer of right ankle limited to breakdown of skin; L97.811 Non-pressure chronic ulcer of other part of right lower leg limited to breakdown of skin; L02.415 Cutaneous abscess of right lower limb; L03.115 Cellulitis of right lower limb; I10 Essential (primary) hypertension; M19.071 Primary osteoarthritis, right ankle and foot; E11.69 Type 2 diabetes mellitus with other specified complication; M86.661 Other chronic osteomyelitis, right tibia and fibula; M86.161 Other acute osteomyelitis, right tibia and fibula; M86.8X6 Other osteomyelitis, lower leg; M00.871 Arthritis due to other bacteria, right ankle and foot; J45.909 Unspecified asthma, uncomplicated; Z87.01 Personal history of pneumonia (recurrent); Z98.890 Other specified postprocedural states; Z87.891 Personal history of nicotine dependence; Z96.698 Presence of other orthopedic joint implants; Z79.899 Other long term (current) drug therapy; Z79.84 Long term (current) use of oral hypoglycemic drugs | CPT/HCPCS: G0463; Z7500 ==

== ENCOUNTER → 2021-01-27 | Outpatient (CLI) | payer MEDICAID | END | disposition home or self-care (01) | LOC: HBOWC 08:17 | PROVIDERS: ATTEND Nurse Practitioner Adult Health | DX: E11.622 Type 2 diabetes mellitus with other skin ulcer (principal); L97.311 Non-pressure chronic ulcer of right ankle limited to breakdown of skin; L97.811 Non-pressure chronic ulcer of other part of right lower leg limited to breakdown of skin; L02.415 Cutaneous abscess of right lower limb; L03.115 Cellulitis of right lower limb; I10 Essential (primary) hypertension; M19.071 Primary osteoarthritis, right ankle and foot; E11.69 Type 2 diabetes mellitus with other specified complication; M86.661 Other chronic osteomyelitis, right tibia and fibula; M86.161 Other acute osteomyelitis, right tibia and fibula; M86.8X6 Other osteomyelitis, lower leg; M00.871 Arthritis due to other bacteria, right ankle and foot; L84 Corns and callosities; J45.909 Unspecified asthma, uncomplicated; Z87.01 Personal history of pneumonia (recurrent); Z98.890 Other specified postprocedural states; Z87.891 Personal history of nicotine dependence; Z96.698 Presence of other orthopedic joint implants; Z79.899 Other long term (current) drug therapy; Z79.84 Long term (current) use of oral hypoglycemic drugs | CPT/HCPCS: G0463; Z7500 ==

== ENCOUNTER → 2021-02-08 | Outpatient (CLI) | payer MEDICAID ==
[2021-02-08 12:33] LABS: BASOPHILS % (AUTO) 0.5 % (0.0-2.0); HEMATOCRIT 39.3 % (41-53); HEMOGLOBIN 13.2 g/dL (13.5-17.5); LYMPHOCYTES # (AUTO) 1.8 K/uL (1.0-4.8); LYMPHOCYTES % (AUTO) 20.8 % (22.0-44.0); MEAN CORPUSCULAR HEMOGLOBIN 28.4 pg (26.0-34.0); MEAN CORPUSCULAR HGB CONC 33.6 G/dL (31.0-37.0); MEAN CORPUSCULAR VOLUME 85 fL (80-100); MONOCYTES # (AUTO) 0.7 K/uL (0.1-1.0); MONOCYTES % (AUTO) 7.8 % (2.0-9.0); NEUTROPHILS % (AUTO) 68.9 % (40.0-70.0); PLATELET COUNT (AUTO) 319 K/uL (150-450); RED BLOOD CELL COUNT(AUTO) 4.64 MIL/uL (4.50-5.90); RED CELL DISTRIBUTION WIDTH 14.5 % (11.5-14.5)
[2021-02-08 13:29] LABS: ERYTHROCYTE SEDIMENTATION RATE 41 MM/HR (0-15)
== END | disposition home or self-care (01) ==
LOC: LABMN 11:19
PROVIDERS: ATTEND Emergency Medicine
DX: E11.622 Type 2 diabetes mellitus with other skin ulcer (principal); M86.60 Other chronic osteomyelitis, unspecified site; L02.415 Cutaneous abscess of right lower limb; L91.9 Hypertrophic disorder of the skin, unspecified
CPT/HCPCS: 85025; 85651; 86140

== ENCOUNTER → 2021-02-08 | Outpatient (CLI) | payer MEDICAID | END | disposition home or self-care (01) | LOC: HBOWC 08:39 | PROVIDERS: ATTEND Emergency Medicine | DX: E11.622 Type 2 diabetes mellitus with other skin ulcer (principal); L97.311 Non-pressure chronic ulcer of right ankle limited to breakdown of skin; L97.811 Non-pressure chronic ulcer of other part of right lower leg limited to breakdown of skin; L02.415 Cutaneous abscess of right lower limb; L03.115 Cellulitis of right lower limb; I10 Essential (primary) hypertension; M19.071 Primary osteoarthritis, right ankle and foot; E11.69 Type 2 diabetes mellitus with other specified complication; M86.661 Other chronic osteomyelitis, right tibia and fibula; M86.161 Other acute osteomyelitis, right tibia and fibula; M86.8X6 Other osteomyelitis, lower leg; M00.871 Arthritis due to other bacteria, right ankle and foot; L84 Corns and callosities; J45.909 Unspecified asthma, uncomplicated; Z87.01 Personal history of pneumonia (recurrent); Z98.890 Other specified postprocedural states; Z87.891 Personal history of nicotine dependence; Z96.698 Presence of other orthopedic joint implants; Z79.899 Other long term (current) drug therapy; Z79.84 Long term (current) use of oral hypoglycemic drugs | CPT/HCPCS: 87070; 87077; 87186; 87205; G0463 ==

== ENCOUNTER → 2021-03-01 | Outpatient (CLI) | payer MEDICAID | END | disposition home or self-care (01) | LOC: HBOWC 08:37 | PROVIDERS: ATTEND Emergency Medicine | DX: E11.622 Type 2 diabetes mellitus with other skin ulcer (principal); L97.811 Non-pressure chronic ulcer of other part of right lower leg limited to breakdown of skin; L97.311 Non-pressure chronic ulcer of right ankle limited to breakdown of skin; L02.415 Cutaneous abscess of right lower limb; L03.115 Cellulitis of right lower limb; E11.69 Type 2 diabetes mellitus with other specified complication; M86.671 Other chronic osteomyelitis, right ankle and foot; M86.661 Other chronic osteomyelitis, right tibia and fibula; M86.8X6 Other osteomyelitis, lower leg; I10 Essential (primary) hypertension; M00.871 Arthritis due to other bacteria, right ankle and foot; J45.909 Unspecified asthma, uncomplicated; Z87.891 Personal history of nicotine dependence; Z87.01 Personal history of pneumonia (recurrent) | CPT/HCPCS: G0463 ==

== ENCOUNTER → 2021-03-15 | Outpatient (CLI) | payer MEDICAID | END | disposition home or self-care (01) | LOC: HBOWC 08:44 | PROVIDERS: ATTEND Emergency Medicine | DX: E11.622 Type 2 diabetes mellitus with other skin ulcer (principal); L97.811 Non-pressure chronic ulcer of other part of right lower leg limited to breakdown of skin; L97.311 Non-pressure chronic ulcer of right ankle limited to breakdown of skin; L02.415 Cutaneous abscess of right lower limb; L03.115 Cellulitis of right lower limb; E11.69 Type 2 diabetes mellitus with other specified complication; M86.671 Other chronic osteomyelitis, right ankle and foot; M86.661 Other chronic osteomyelitis, right tibia and fibula; M86.8X6 Other osteomyelitis, lower leg; M86.161 Other acute osteomyelitis, right tibia and fibula; I10 Essential (primary) hypertension; M19.071 Primary osteoarthritis, right ankle and foot; M00.871 Arthritis due to other bacteria, right ankle and foot; J45.909 Unspecified asthma, uncomplicated; Z87.891 Personal history of nicotine dependence; Z87.01 Personal history of pneumonia (recurrent); L84 Corns and callosities; Z79.84 Long term (current) use of oral hypoglycemic drugs; Z79.899 Other long term (current) drug therapy; Z98.890 Other specified postprocedural states | CPT/HCPCS: G0463; Z7500 ==

== ENCOUNTER → 2021-03-29 | Outpatient (CLI) | payer MEDICAID | END | disposition home or self-care (01) | LOC: HBOWC 08:17 | PROVIDERS: ATTEND Emergency Medicine | DX: E11.622 Type 2 diabetes mellitus with other skin ulcer (principal); L97.811 Non-pressure chronic ulcer of other part of right lower leg limited to breakdown of skin; L97.311 Non-pressure chronic ulcer of right ankle limited to breakdown of skin; L02.415 Cutaneous abscess of right lower limb; L03.115 Cellulitis of right lower limb; E11.69 Type 2 diabetes mellitus with other specified complication; M86.671 Other chronic osteomyelitis, right ankle and foot; M86.661 Other chronic osteomyelitis, right tibia and fibula; M86.8X6 Other osteomyelitis, lower leg; M86.161 Other acute osteomyelitis, right tibia and fibula; I10 Essential (primary) hypertension; M19.071 Primary osteoarthritis, right ankle and foot; M00.871 Arthritis due to other bacteria, right ankle and foot; J45.909 Unspecified asthma, uncomplicated; Z87.891 Personal history of nicotine dependence; Z87.01 Personal history of pneumonia (recurrent); L84 Corns and callosities; Z79.84 Long term (current) use of oral hypoglycemic drugs; Z79.899 Other long term (current) drug therapy; Z98.890 Other specified postprocedural states | CPT/HCPCS: G0463 ==

== ENCOUNTER → 2021-04-26 | Outpatient (CLI) | payer MEDICAID | END | disposition home or self-care (01) | LOC: HBOWC 10:40 | PROVIDERS: ATTEND Emergency Medicine | DX: E11.622 Type 2 diabetes mellitus with other skin ulcer (principal); L97.811 Non-pressure chronic ulcer of other part of right lower leg limited to breakdown of skin; L97.311 Non-pressure chronic ulcer of right ankle limited to breakdown of skin; L02.415 Cutaneous abscess of right lower limb; L03.115 Cellulitis of right lower limb; E11.69 Type 2 diabetes mellitus with other specified complication; M86.661 Other chronic osteomyelitis, right tibia and fibula; M86.671 Other chronic osteomyelitis, right ankle and foot; M86.8X6 Other osteomyelitis, lower leg; M86.161 Other acute osteomyelitis, right tibia and fibula; I10 Essential (primary) hypertension; M19.071 Primary osteoarthritis, right ankle and foot; M00.871 Arthritis due to other bacteria, right ankle and foot; L84 Corns and callosities; J45.909 Unspecified asthma, uncomplicated; Z87.891 Personal history of nicotine dependence; Z87.01 Personal history of pneumonia (recurrent); Z79.84 Long term (current) use of oral hypoglycemic drugs; Z79.899 Other long term (current) drug therapy; Z98.890 Other specified postprocedural states | CPT/HCPCS: G0463; Z7500 ==

== ENCOUNTER → 2021-06-07 | Outpatient (CLI) | payer MEDICAID | END | disposition home or self-care (01) | LOC: HBOWC 08:32 | PROVIDERS: ATTEND Emergency Medicine | DX: E11.622 Type 2 diabetes mellitus with other skin ulcer (principal); L97.811 Non-pressure chronic ulcer of other part of right lower leg limited to breakdown of skin; L97.311 Non-pressure chronic ulcer of right ankle limited to breakdown of skin; L02.415 Cutaneous abscess of right lower limb; L03.115 Cellulitis of right lower limb; E11.69 Type 2 diabetes mellitus with other specified complication; M86.661 Other chronic osteomyelitis, right tibia and fibula; M86.161 Other acute osteomyelitis, right tibia and fibula; M86.8X6 Other osteomyelitis, lower leg; I10 Essential (primary) hypertension; M19.071 Primary osteoarthritis, right ankle and foot; M00.871 Arthritis due to other bacteria, right ankle and foot; L84 Corns and callosities; E66.9 Obesity, unspecified; J45.909 Unspecified asthma, uncomplicated; Z87.891 Personal history of nicotine dependence; Z87.01 Personal history of pneumonia (recurrent); Z79.84 Long term (current) use of oral hypoglycemic drugs; Z79.899 Other long term (current) drug therapy; Z98.890 Other specified postprocedural states; Z68.36 Body mass index [BMI] 36.0-36.9, adult | CPT/HCPCS: G0463; Z7500 ==